=== PATIENT | male | born 1975 | race Caucasian/White ===

== ENCOUNTER 2024-07-15 12:59 | Emergency (ER) | payer BC, SELFPAY ==
[2024-07-15 13:03] VITALS: BP 157/98
--- NOTE | 2024-07-15 14:35 | ED.GENMED ---
History of Present Illness
General
Chief Complaint: Rabies
Source: patient
Exam Limitations: none
Time Seen by Provider: 07/15/24 14:15
Nursing documentation reviewed up to this point in time: agreed with
History of Present Illness
History of Present Illness:
Patient is a 49-year-old male presenting to the emergency department for rabies vaccination after contact with a bat last night. Patient states he was walking his dog yesterday when a bat flew and smacked him in the side of his head. He denies any
known bite or scratch from the bat. He contacted his PCP energy consultant yesterday evening who recommended contacting the health department for guidance. Patient states after speaking with the [facility] -he was referred for the
rabies vaccine.
He brings along a letter with him from the Department of health recommending the rabies vaccine given bats are considered 'high risk'.
Patient has no other complaints today. No history of rabies vaccination in the past. No prior vaccination reactions.
Review of Systems
Review of Systems
Allergies reviewed?: Yes
All Other Systems: ROS reviewed and negative except as documented in HPI and ROS
Phy Exam
Physical Exam
Physical Exam:
Vitals: Hypertensive, otherwise stable vital signs. Afebrile
General: Patient is well appearing, no acute distress
Skin: Warm and dry, no rashes or lesions. No evidence of bite or scratch.
Head: Normocephalic, atraumatic
Throat: Protecting airway
Neck: Normal ROM, no cervical spine tenderness
Cardiac: Regular rate
Pulm: No apparent respiratory distress
Abdomen: Nondistended
Extremities: No evidence of cyanosis or edema
Neuro: Grossly intact
Psychiatric: Normal affect.
Course
Orders/Labs/Results
Orders:
Orders
07/15/24 14:58
Rabies Immune Globulin/Pf [HyperRAB] 1,784 unit IM NOW STA
07/15/24 15:00
Rabies Vaccine (Pcec)/Pf [Rabavert Rabies Vacc W-Diluent] 2.5 unit IM .ONCE ONE
Vital Signs
Initial and Last Documented VS:
Initial Vital Signs
Temp Pulse Resp BP Pulse Ox
98.3 F 90 16 157/98 99
07/15/24 13:03 07/15/24 13:03 07/15/24 13:03 07/15/24 13:03 07/15/24 13:03
Last Documented Vital Signs
Temp Pulse Resp BP Pulse Ox
98.3 F 90 16 157/98 99
07/15/24 13:03 07/15/24 13:03 07/15/24 13:03 07/15/24 13:03 07/15/24 13:03
MDM/Problems Addressed
Differential Diagnosis Includes:
Not limited to: rabies prophylaxis, etc
MDM/Problems Addressed:
49-year-old male presents for rabies vaccine after bat exposure last night. No known bite or scratch however vaccination series recommended by [facility]. I feel that the risk of rabies transmission extremely low given
patient was alert at this time with no evidence of bite or scratch. Shared decision making utilized with patient. Will proceed with rabies vaccination today given [facility] recommendation. Patient given rabies immunoglobulin and dose #1 of rabies
vaccination in ED today. He tolerated vaccinations well. Vaccination schedule discussed with patient � he will follow up with infusion clinic for additional doses. Paper prescription given to patient upon discharge. Return precaution discussed.
Stable for discharge home.
Chronic conditions affecting care:
N/A
Acute Exacerbation and/or Progression of Chronic Illness:
N/A
*Pulse Oximetry
Patient hypoxic: no
*EKG
Interpreted by ED Provider?: NA
*Cheesemaker Interpretation
Rate: Cheesemaker- N/A
*Critical Care Note
Total Time (30-74mins, 75-104mins- exclusive of procedures): Not Applicable
ED Attending Note
-
Portions of this chart may have been created with voice recognition software.� Occasional wrong word or��sound alike� substitutions may have occurred due to the inherent limitations of voice recognition software.
Discharge Plan
Departure
Patient Disposition: Home (Routine Discharge)
Date of Disposition: 07/15/24
Time of Disposition: 14:51
Patient with high blood pressure during this ER visit?: Yes
Condition: Good
Covid-19: Not Applicable
Discharge Problem:
Rabies, need for prophylactic vaccination against
Instructions: BLOOD PRESSURE, Rabies
Prescriptions:
New
RabAvert (PF) 2.5 unit suspension for reconstitution
2.5 unit IM ONCE Qty: 3 0RF
Rx Instructions:
Inject 1mL on 07/18/24, 07/22/24, and 07/29/24
Stand Alone Forms: Rabies Vaccine Post Exp Dosing
Activity Restrictions/Additional Instructions:
RETURN TO THE EMERGENCY DEPARTMENT WITH ANY SIGNIFICANT REDNESS, SWELLING, OR PAIN AROUND VACCINATION SITES, RASH, OR ANY OTHER CONCERNS
- As discussed - you were given the rabies immunoglobulin and dose #1 of the rabies vaccine today. You will require 3 additional doses of the rabies vaccine which should be completed on 07/18/24, 07/22/24, and 07/29/24. These can be done at the
infusion center. You can call to schedule an appointment. Please make sure you bring the prescription with you to these appointments.
- Follow-up with primary care for further evaluation/management as needed
Monitor your symptoms closely and return to the emergency department with any acute worsening/new symptoms or any other concerns
Interventions
Interventions:
*Risk Screen - Suicide Last Done: 07/15/24 13:03
*General Assessment Last Done: 07/15/24 15:03
*Neglect/Abuse Screening Last Done: 07/15/24 13:03
*ED COVID-19 Vaccine History Last Done: 07/15/24 15:03
*Nursing Disposition Last Done: 07/15/24 15:07
Discharge Date and Time
Discharge Date/Time: 07/15/24 15:40
Print Language: VINCENTIAN
[2024-07-15] MEDS: HyperRAB 1784 UNIT IM (15:27)
[2024-07-15] MEDS: RABAVERT RABIES VACC W-DILUENT 2.5 UNIT IM (15:29)
== END 2024-07-15 15:40 | disposition home or self-care (01) ==
LOC: EMR 12:59
PROVIDERS: EMERGENCY PHYSICIAN Student in an Organized Health Care Education/Training Program; FAMILY PHYSICIAN Family Medicine
DX: Z20.3 Contact with and (suspected) exposure to rabies (principal); Z23 Encounter for immunization; Z29.14 Encounter for prophylactic rabies immune globulin
CPT/HCPCS: 99282; 90471; 96372; 90375; 90675

== ENCOUNTER 2024-07-29 11:22 | Outpatient (RCR) | payer BC, SELFPAY ==
[2024-07-18 13:16] VITALS: BP 136/89
[2024-07-18] MEDS: RABAVERT RABIES VACC W-DILUENT 2.5 UNIT IM (13:26)
[2024-07-22 07:54] VITALS: BP 155/102
[2024-07-22] MEDS: RABAVERT RABIES VACC W-DILUENT 2.5 UNIT IM (08:05)
[2024-07-29 11:40] VITALS: BP 147/91
[2024-07-29] MEDS: RABAVERT RABIES VACC W-DILUENT 2.5 UNIT IM (11:56)
== END 2024-08-13 23:59 | disposition home or self-care (01) ==
LOC: OID 11:22
PROVIDERS: ATTENDING PHYSICIAN Student in an Organized Health Care Education/Training Program; FAMILY PHYSICIAN Family Medicine
DX: Z20.3 Contact with and (suspected) exposure to rabies (principal); Z23 Encounter for immunization
CPT/HCPCS: 90471; 90675